=== PATIENT | male | born 1955 | race Caucasian/White ===

== ENCOUNTER 2017-07-22 09:11 | Emergency (ER) | payer OTHER ==
--- NOTE | 2017-07-22 09:33 | EDM.PDOC ---
ED HPI GENERAL MEDICAL PROBLEM - General Chief Complaint: Respiratory Problem Stated Complaint: [facility] Time Seen by Provider: 07/22/17 09:31 Source of Information: Reports: Patient History Limitations: Reports: No Limitations - History of Present Illness INITIAL COMMENTS - FREE TEXT/NARRATIVE: 62-year-old male presents to the ED per [facility]. Patient states he's felt very short of breath for a week. He has had been having to sleep sitting up in the truck. He lies flat he feels like he suffocated. He reports a productive cough with greenish sputum. He doesn't admit any fever or chills. Appetite is been poor. He reports that his blood pressure medications that he usually takes didn't arrive in the mail and was off them for about 10 days. He was restarted on these medicines 3 days ago when they arrived in the mail. Change in his medications for the last 10 years. He has no known heart disease. He reports he is a never smoker. Onset: Sudden Onset Date: 07/15/17 (Dyspnea with productive greenish sputum. No hemoptysis.) Duration: Day(s): Location: Reports: Chest (Short of breath and orthopneic and productive cough.) Quality: Reports: Other (Feels very short of breath even at rest. O2 sats are 93 % on arrival.) Severity: Moderate Improves with: Reports: None Worsens with: Reports: Other (Lying down or movement.) Context: Denies: Activity, Exercise, Lifting, Sick Contact, Trauma, Other Associated Symptoms: Reports: Cough, cough w sputum, Loss of Appetite, Malaise, Shortness of Breath, Weakness (Generally weak.). 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.) - Related Data Allergies Allergy/AdvReac Type Severity Reaction Status Date / Time No Known Allergies Allergy Verified 07/22/17 09:19 Home Meds: Home Meds Furosemide [Lasix] 40 mg PO DAILY #30 tab 07/22/17 [Rx] Metoprolol Succinate [Toprol XL 50mg] 1 tab PO DAILY 07/22/17 [History] Potassium Chloride 20 meq PO DAILY #30 tablet.er 07/22/17 [Rx] glipiZIDE [Glucotrol XL] 5 mg PO BRK 07/22/17 [History] metFORMIN [Glucophage] 850 mg PO BIDMEALS 07/22/17 [History] Past Medical History Cardiovascular History: Reports: High Cholesterol, Hypertension Respiratory History: Reports: Sleep Apnea Endocrine/Metabolic History: Reports: Diabetes, Type II (Controlled with metformin twice a day.) Social & Family History - Tobacco Use Smoking Status *Q: Never Smoker Second Hand Smoke Exposure: No - Caffeine Use Caffeine Use: Reports: Coffee - Recreational Drug Use Recreational Drug Use: No - Living Situation & Occupation Living situation: Reports: Single Occupation: Employed (Clearly up in [place] working in the [employer]. Home is in [place].) ED ROS GENERAL - Review of Systems Review Of Systems: See Below Constitutional: Reports: Malaise, Weakness, Fatigue, Weight Gain (Feels he is gaining weight is his pants are too tight.). Denies: Fever, Chills HEENT: Reports: Throat Pain Respiratory: Reports: Shortness of Breath, Wheezing (Severe wheezing and reason for coming to the ED.), Cough, Sputum (Greenish sputum.). Denies: Pleuritic Chest Pain ( Intermittently.) Cardiovascular: Reports: Blood Pressure Problem, Dyspnea on Exertion (Mild lower extremities), Edema. Denies: Chest Pain, Claudication, Lightheadedness, Orthopnea (Chronic hypertension.), Palpitations Endocrine: Reports: Fatigue GI/Abdominal: Reports: Constipation (Mild problems.). Denies: Abdominal Pain : Reports: No Symptoms Musculoskeletal: Reports: Back Pain, Joint Pain (Knees hips at times.) Skin: Reports: No Symptoms Neurological: Reports: No Symptoms Psychiatric: Reports: No Symptoms Hematologic/Lymphatic: Reports: No Symptoms Immunologic: Reports: No Symptoms ED EXAM, GENERAL - Physical Exam Exam: See Below Exam Limited By: Respiratory Distress General Appearance: Alert (Obvious respiratory distress. He is to Make with respiratory 24-26/m i.e. working hard to breathe.), WD/WN, Mild Distress ( Respiratory distress.) Eye Exam: Bilateral Eye: Normal Inspection Throat/Mouth: Normal Inspection, Normal Lips, Normal Teeth, Normal Oropharynx Head: Atraumatic, Normocephalic Neck: Normal Inspection, Supple, Non-Tender, Full Range of Motion. No: Lymphadenopathy (L), Lymphadenopathy (R) Respiratory/Chest: Respiratory Distress (Tachypnea At rest. O2 sats 92% on room air.), Decreased Breath Sounds (Sounds are severely decreased to both lower lung grace.), Wheezing (Mild expiratory wheezing bilaterally). No: Rales ( Mild expiratory wheezing bilaterally) Cardiovascular: Regular Rate, Rhythm, No Gallop, No Murmur, No Rub, Other (He has a bit of neck. Not able to visualize any elevated JVD.). No: No Edema Peripheral Pulses: 1+: Posterior Tibial (L), Posterior Tibial (R), Dorsalis Pedis (L), Dorsalis Pedis (R) GI/Abdominal: Other (Abdomen is distended and mildly tympanitic to percussion the upper abdomen. It is firm to palpation. No obvious organomegaly or masses are palpable. Abdomen girth limits ability to palpate solid organs.) Back Exam: Normal Inspection, Full Range of Motion. No: CVA Tenderness (L), CVA Tenderness (R) Extremities: Pedal Edema Neurological: Alert (Trace edema both lower extremities.), Oriented, CN II-XII Intact, Normal Cognition Psychiatric: Normal Affect, Normal Mood Skin Exam: Warm, Dry, Intact, Normal Color, No Rash EKG INTERPRETATION EKG Date: 07/22/17 Time: 09:20 Rhythm: NSR Rate (Beats/Min): 85 (Occasional unifocal PVCs appreciated) Penrose: Normal P-Wave: Present (Sleep bifid in leads V5 V6 suggesting possible right atrial hypertrophy.) QRS: Other (Mildly decreased voltage in the limb leads.) ST-T: Normal QT: Prolonged (Minimally prolonged.) EKG Interpretation Comments: Borderline ECG Course - Vital Signs Last Recorded V/S: Last Vital Signs Temp 36.4 C 07/22/17 09:14 Pulse 90 07/22/17 09:14 Resp 24 H 07/22/17 09:14 BP 140/98 H 07/22/17 09:14 Pulse Ox 94 L 07/22/17 10:33 - Orders/Labs/Meds Orders: Active Orders 24 hr Category Date Time Status EKG Documentation Completion [RC] STAT Care 07/22/17 10:02 Active Oxygen Therapy [RC] ASDIRECTED Care 07/22/17 10:02 Active Peripheral IV Care [RC] . DIRECTED Care 07/22/17 11:27 Active RT Aerosol Therapy [RC] ASDIRECTED Care 07/22/17 10:12 Active CULTURE BLOOD [BC] Stat Lab 07/22/17 10:20 Received CULTURE BLOOD [BC] Stat Lab 07/22/17 10:30 Received MAGNESIUM [CHEM] Stat Lab 07/22/17 10:20 Results MYCOPLASMA PNEUMONIAE IGM AB [CHEM] Stat Lab 07/22/17 10:20 Results Sodium Chloride 0.9% [Saline Flush] Med 07/22/17 11:27 Active 10 ml FLUSH ASDIRECTED PRN Sodium Chloride 0.9% [Saline Flush] Med 07/22/17 11:34 Active 10 ml FLUSH ONETIME PRN Blood Culture x2 Reflex Set [OM.PC] Stat Oth 07/22/17 10:03 Ordered Peripheral IV Insertion Adult [OM.PC] Stat Oth 07/22/17 11:27 Ordered Medication Orders Sodium Chloride (Saline Flush) 10 ml FLUSH ASDIRECTED PRN PRN Reason: Keep Vein Open Last Admin: 07/22/17 11:28 Dose: 10 ml Sodium Chloride (Saline Flush) 10 ml FLUSH ONETIME PRN PRN Reason: IV FLUSH Last Admin: 07/22/17 11:46 Dose: 10 ml Labs: Laboratory Tests 07/22/17 07/22/17 07/22/17 Range/Units 09:22 10:20 10:20 WBC 6.89 (4.23-9.07) K/mm3 RBC 4.99 (4.63-6.08) M/mm3 Hgb 14.4 (13.7-17.5) gm/L Hct 41.2 (40.1-51.0) % MCV 82.6 (79.0-92.2) fl MCH 28.9 (25.7-32.2) pg MCHC 35.0 (32.2-35.5) g/dl RDW Std Deviation 44.0 H (35.1-43.9) fL Plt Count 237 (163-337) K/mm3 MPV 9.9 (9.4-12.3) fl Neutrophils % (Manual) 54 (40-60) % Band Neutrophils % 1 (0-10) % Lymphocytes % (Manual) 40 (20-40) % Atypical Lymphs % 0 % Monocytes % (Manual) 4 (2-10) % Eosinophils % (Manual) 1 (0.8-7.0) % Basophils % (Manual) 0 L (0.2-1.2) Platelet Estimate Adequate RBC Morph Comment Normal ESR (0-15) mm/hr PT 10.4 (8.0-13.0) SECONDS INR 0.96 D-Dimer, Quantitative (0.19-0.59) mg/L Sodium (136-145) mEq/L Potassium (3.5-5.1) mEq/L Chloride (98-107) mEq/L Carbon Dioxide (21-32) mEq/L Anion Gap (5-15) BUN (7-18) mg/dL Creatinine (0.7-1.3) mg/dL Est Cr Clr Drug Dosing mL/min Estimated GFR (MDRD) (>60) mL/min BUN/Creatinine Ratio (14-18) Glucose (74-106) mg/dL POC Glucose 323 H (70-105) mg/dL Calcium (8.5-10.1) mg/dL Magnesium (1.8-2.4) mg/dl Total Bilirubin (0.2-1.0) mg/dL AST (15-37) U/L ALT (16-63) U/L Alkaline Phosphatase (46-116) U/L CK-MB (CK-2) (0-3.6) ng/ml Troponin I (0.00-0.056) ng/mL C-Reactive Protein (<1.0) mg/dL NT-Pro-B Natriuret Pep (0-125) pg/mL Total Protein (6.4-8.2) g/dl Albumin (3.4-5.0) g/dl Globulin gm/dL Albumin/Globulin Ratio (1-2) 07/22/17 07/22/17 07/22/17 Range/Units 10:20 10:20 10:20 WBC (4.23-9.07) K/mm3 RBC (4.63-6.08) M/mm3 Hgb (13.7-17.5) gm/L Hct (40.1-51.0) % MCV (79.0-92.2) fl MCH (25.7-32.2) pg MCHC (32.2-35.5) g/dl RDW Std Deviation (35.1-43.9) fL Plt Count (163-337) K/mm3 MPV (9.4-12.3) fl Neutrophils % (Manual) (40-60) % Band Neutrophils % (0-10) % Lymphocytes % (Manual) (20-40) % Atypical Lymphs % % Monocytes % (Manual) (2-10) % Eosinophils % (Manual) (0.8-7.0) % Basophils % (Manual) (0.2-1.2) Platelet Estimate RBC Morph Comment ESR 8 (0-15) mm/hr PT (8.0-13.0) SECONDS INR D-Dimer, Quantitative (0.19-0.59) mg/L Sodium 137 (136-145) mEq/L Potassium 3.6 (3.5-5.1) mEq/L Chloride 102 (98-107) mEq/L Carbon Dioxide 24 (21-32) mEq/L Anion Gap 14.6 (5-15) BUN 11 (7-18) mg/dL Creatinine 0.9 (0.7-1.3) mg/dL Est Cr Clr Drug Dosing 87.28 mL/min Estimated GFR (MDRD) > 60 (>60) mL/min BUN/Creatinine Ratio 12.2 L (14-18) Glucose 353 H (74-106) mg/dL POC Glucose (70-105) mg/dL Calcium 8.3 L (8.5-10.1) mg/dL Magnesium 1.8 (1.8-2.4) mg/dl Total Bilirubin 0.8 (0.2-1.0) mg/dL AST 26 (15-37) U/L ALT 41 (16-63) U/L Alkaline Phosphatase 111 (46-116) U/L CK-MB (CK-2) 2.6 (0-3.6) ng/ml Troponin I < 0.017 (0.00-0.056) ng/mL C-Reactive Protein 1.0 (<1.0) mg/dL NT-Pro-B Natriuret Pep 752 H (0-125) pg/mL Total Protein 6.2 L (6.4-8.2) g/dl Albumin 3.2 L (3.4-5.0) g/dl Globulin 3.0 gm/dL Albumin/Globulin Ratio 1.1 (1-2) /26/18 Range/Units 10:20 WBC (4.23-9.07) K/mm3 RBC (4.63-6.08) M/mm3 Hgb (13.7-17.5) gm/L Hct (40.1-51.0) % MCV (79.0-92.2) fl MCH (25.7-32.2) pg MCHC (32.2-35.5) g/dl RDW Std Deviation (35.1-43.9) fL Plt Count (163-337) K/mm3 MPV (9.4-12.3) fl Neutrophils % (Manual) (40-60) % Band Neutrophils % (0-10) % Lymphocytes % (Manual) (20-40) % Atypical Lymphs % % Monocytes % (Manual) (2-10) % Eosinophils % (Manual) (0.8-7.0) % Basophils % (Manual) (0.2-1.2) Platelet Estimate RBC Morph Comment ESR (0-15) mm/hr PT (8.0-13.0) SECONDS INR D-Dimer, Quantitative 0.40 (0.19-0.59) mg/L Sodium (136-145) mEq/L Potassium (3.5-5.1) mEq/L Chloride (98-107) mEq/L Carbon Dioxide (21-32) mEq/L Anion Gap (5-15) BUN (7-18) mg/dL Creatinine (0.7-1.3) mg/dL Est Cr Clr Drug Dosing mL/min Estimated GFR (MDRD) (>60) mL/min BUN/Creatinine Ratio (14-18) Glucose (74-106) mg/dL POC Glucose (70-105) mg/dL Calcium (8.5-10.1) mg/dL Magnesium (1.8-2.4) mg/dl Total Bilirubin (0.2-1.0) mg/dL AST (15-37) U/L ALT (16-63) U/L Alkaline Phosphatase (46-116) U/L CK-MB (CK-2) (0-3.6) ng/ml Troponin I (0.00-0.056) ng/mL C-Reactive Protein (<1.0) mg/dL NT-Pro-B Natriuret Pep (0-125) pg/mL Total Protein (6.4-8.2) g/dl Albumin (3.4-5.0) g/dl Globulin gm/dL Albumin/Globulin Ratio (1-2) Meds: Medications Generic Name Dose Route Start Last Admin Trade Name Maury PRN Reason Stop Dose Admin Sodium Chloride 10 ml 07/22/17 11:27 07/22/17 11:28 Saline Flush FLUSH 10 ml ASDIRECTED PRN Administration Keep Vein Open Sodium Chloride 10 ml 07/22/17 11:34 07/22/17 11:46 Saline Flush FLUSH 10 ml ONETIME PRN Administration IV FLUSH Discontinued Medications Generic Name Dose Route Start Last Admin Trade Name Freq PRN Reason Stop Dose Admin Albuterol/Ipratropium 3 ml 07/22/17 10:12 07/22/17 10:19 Duoneb 3.0-0.5 Mg/3 Ml NEB 07/22/17 10:13 3 ml ONETIME ONE Administration Furosemide 40 mg 07/22/17 11:27 07/22/17 11:52 Lasix IVPUSH 07/22/17 11:28 40 mg NOW ONE Administration Iopamidol 80 ml 07/22/17 11:34 07/22/17 11:46 Isovue-300 (61%) IVPUSH 07/22/17 11:35 80 ml ONETIME ONE Administration - Radiology Interpretation Free Text/Narrative:: CT of the chest is been completed. It releases reveals bilateral moderate sized pleural effusions with compressive atelectasis of both lower lung grace. No evidence of pneumonia within the pleural effusion or compressed lungs is evident. - Re-Assessments/Exams Free Text/Narrative Re-Assessment/Exam: 07/22/17 11:26 2 view chest x-ray reveals bilateral pleural effusions more on the right as compared to the left. There is evidence of diffuse pulmonary vascular congestion. Mild degenerative changes appreciated in the thoracic spine. Because he has a fever I'm going to CT his chest to make sure it does not show any obvious pneumonia or complicated empyema in the right lower lobe. Will have the nurses give him Lasix 40 mg IV. He did not get much relief of his dyspnea from the DuoNeb. However his O2 sats are 96% at rest. 07/22/17 11:29 White count is 6.89 with a normal differential 54% neutrophils 1 % bands reported and 40% lymphocytes. Hemoglobin is 14.4 with hematocrit of 41.2. Sedimentation rate is 8. PT is 10.4 with an INR of 0.96. Sodium is 137 with potassium of 3.6. Chloride is 102 with a bicarbonate 24. Anion gap is 14.6. BUN is 11. Creatinine is 0.9. Glucose is elevated at 353 suggesting occult type 2 diabetes. Calcium was 8.3 bilirubin 0.8 liver function normal. CK- MB fraction is normal at 2.6 troponin I is less than 0.017. C-reactive protein is 1.0 BNP is 752. Normal BNP in his age group is 125 or less. Total protein is 6.2 with an albumin fraction 3.2. Therefore we have a gentleman with new onset of significant congestive heart failure. No evidence of recent myocardial infarction that would account for this. 07/22/17 12:04 CT scan of the chest reveals bilateral moderate the large pleural effusions with compressive type atelectasis within both lung bases. No pneumonia is evident in either lung. 07/22/17 12:56 patient is eaten dinner. He will be discharged from the hospital as he has plans to get airplane tomorrow at 6 AM to travel back to [place], his home. He therefore did not wish to stay in the hospital and was not felt prudent to proceed with echocardiogram as the send echo to [facility] to get read by cardiology which would not give us a result until Tuesday or Tuesday of next week. Clinically the patient has developed a cardiomyopathy. Etiology unclear whether this may be ischemic or viral. It has produced bilateral pleural effusions that are causing his significant dyspnea. His O2 sats are 96% on room air but of course go down into the upper 80s on minimal exertion. 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 In the meantime I placed him on Lasix 40 mg once daily every morning he will take a first tablet this afternoon about 4 PM. Also Slow-K 20 mg once daily to be taken with his Lasix tablet to prevent hypokalemia. Potassium today was 3.6. We'll function is normal. Patient will be given copies of CT scan chest x-ray on CD-ROM. Copies of his x-ray reports his ECG and history and physical will be provided to him to take to his doctor in [place]. Departure - Departure Time of Disposition: 12:42 Disposition: Home, Self-Care 01 Condition: Fair Clinical Impression: Bilateral pleural effusion Congestive heart failure (CHF) Qualifiers: Congestive heart failure type: unspecified Congestive heart failure chronicity : acute Qualified Code(s): I50.9 - Heart failure, unspecified Dyspnea Qualifiers: Dyspnea type: shortness of breath Qualified Code(s): R06.02 - Shortness of breath - Discharge Information Prescriptions: Furosemide [Lasix] 40 mg PO DAILY #30 tab Potassium Chloride 20 meq PO DAILY #30 tablet.er Referrals: PCP,Not In Area [Primary Care Provider] - Forms: ED Department Discharge Additional Instructions: Evaluation in the emergency him today in regards to gradually worsening shortness of breath for the last week. Unable to lie down flat due to shortness of breath. Examination suggested decreased air entry to both lower lung grace with dullness to percussion suggesting fluid within your lungs. This is been confirmed on chest x-ray and subsequently CT of the chest as well as you have moderate bilateral pleural effusions which means fluid accumulating in the lower lobes of each lung. It's about equal on each side. This is almost certainly due to weakness of heart muscle that is come on over the last week or 2. This may have been viral induced or sometimes it can mean that the heart muscle itself is not getting adequate blood supply which we call ischemia. The lab tests done here did not show any signs of recent heart attack. Nor does the ECG suggest any recent heart attack. Therefore current symptoms are concerning for possible viral infection of the heart muscle making it weaker than normal causing the fluid to accumulate in your lungs. You need to follow-up with your doctor when you get back home as you need further investigations as to why your heart muscle has weakened suddenly. One test required is an echocardiogram which is an ultrasound of the heart. If this is essentially negative then wound/ostomy clinical nurse specialist would be need to become involved to sort out reason for heart failure. Of note heart failure recurrences is much more common in diabetic patients and therefore important that your blood sugars stay well controlled. Today the blood sugar was elevated at 350. You're treated in the emergency room with intravenous Lasix 40 mg which will start to take some of the fluid off of your lungs. You need to take this in Betsey form starting this afternoon about 4: 00 therefore Stalevo. I would suggest taking it tomorrow after you arrived in [place] from airplane ride so that you do not have to void frequently while on the airplane. Need to take water pill and a potassium supplement daily until follow-up with your doctor or wound/ostomy clinical nurse specialist. Copies of all your labs and your chest x-ray and ECG and CT of the chest were provided to you to take to your doctor when you get home. - My Orders Last 24 Hours: My Active Orders 07/22/17 10:02 EKG Documentation Completion [RC] STAT Oxygen Therapy [RC] ASDIRECTED 07/22/17 10:03 Blood Culture x2 Reflex Set [OM.PC] Stat 07/22/17 10:12 RT Aerosol Therapy [RC] ASDIRECTED 07/22/17 10:20 CULTURE BLOOD [BC] Stat MAGNESIUM [CHEM] Stat MYCOPLASMA PNEUMONIAE IGM AB [CHEM] Stat 07/22/17 10:30 CULTURE BLOOD [BC] Stat 07/22/17 11:27 Peripheral IV Care [RC] . DIRECTED Sodium Chloride 0.9% [Saline Flush] 10 ml FLUSH ASDIRECTED PRN Peripheral IV Insertion Adult [OM.PC] Stat 07/22/17 11:34 Sodium Chloride 0.9% [Saline Flush] 10 ml FLUSH ONETIME PRN - Assessment/Plan Last 24 Hours: My Active Orders 07/22/17 10:02 EKG Documentation Completion [RC] STAT Oxygen Therapy [RC] ASDIRECTED 07/22/17 10:03 Blood Culture x2 Reflex Set [OM.PC] Stat 07/22/17 10:12 RT Aerosol Therapy [RC] ASDIRECTED 07/22/17 10:20 CULTURE BLOOD [BC] Stat MAGNESIUM [CHEM] Stat MYCOPLASMA PNEUMONIAE IGM AB [CHEM] Stat 07/22/17 10:30 CULTURE BLOOD [BC] Stat 07/22/17 11:27 Peripheral IV Care [RC] . DIRECTED Sodium Chloride 0.9% [Saline Flush] 10 ml FLUSH ASDIRECTED PRN Peripheral IV Insertion Adult [OM.PC] Stat 07/22/17 11:34 Sodium Chloride 0.9% [Saline Flush] 10 ml FLUSH ONETIME PRN
[2017-07-22] MEDS ORDERED: Albuterol/Ipratropium 3.0-0.5 MG/3 ML Neb Soln NEB ONE (10:12)
--- NOTE | 2017-07-22 11:16 | CR ---
Chest: Two views of the chest were obtained. Comparison: No prior study. Heart size at the upper limits of normal. Pulmonary vessels are congested. Small bilateral pleural effusions are seen. Slight degenerative change is noted within the spine. Impression: 1. Findings suspicious for CHF. Diagnostic code #3
[2017-07-22] MEDS ORDERED: Sodium Chloride 0.9% 10 ML Syringe FLUSH PRN ×2 (11:27→11:34)
[2017-07-22] MEDS ORDERED: Furosemide 40 MG/4 ML VIAL IVPUSH ONE (11:27)
[2017-07-22] MEDS ORDERED: Iopamidol 612 MG/ML 100 ML Bottle IVPUSH ONE (11:34)
--- NOTE | 2017-07-22 12:04 | CT ---
CT chest Technique: Multiple axial sections through the chest were obtained. Intravenous contrast was utilized. Findings: Moderately large bilateral pleural effusions are seen. Compressive type atelectasis is noted within both lung bases. Lungs otherwise are clear. Heart size at the upper limits of normal. Mild coronary artery calcification is seen. Very minimal pericardial effusion is seen which is felt to be incidental. Small portion of the visualized upper abdominal structures are within normal limits. Impression: 1. Moderately large bilateral pleural effusions with compressive type atelectasis within both lung bases. Diagnostic code #3
== END 2017-07-22 14:15 | disposition home or self-care (01) ==
LOC: JD.ED 09:11
DX: I11.0 Hypertensive heart disease with heart failure (principal); I50.9 Heart failure, unspecified; J90 Pleural effusion, not elsewhere classified; E11.9 Type 2 diabetes mellitus without complications; Z79.84 Long term (current) use of oral hypoglycemic drugs
CPT/HCPCS: 36415; 71046; 71260; 80053; 82553; 82962; 83735; 83880; 84484; 85025; 85379; 85610; 85652; 86140; 86738; 87040; 87804; 93005; 94640; 96374; 99285; J1940; J7050; Q9967; 93010

== ENCOUNTER 2017-10-21 15:26 | Emergency (ER) | payer OTHER ==
[2017-10-21] MEDS ORDERED: Furosemide 40 MG Tab PO ONE (16:21)
--- NOTE | 2017-10-21 16:26 | EDM.PDOC ---
ED HPI GENERAL MEDICAL PROBLEM - General Chief Complaint: Cardiovascular Problem Stated Complaint: SWELLING Time Seen by Provider: 10/21/17 16:21 Source of Information: Reports: Patient - History of Present Illness INITIAL COMMENTS - FREE TEXT/NARRATIVE: Patient arrives here in the emergency room, sent from the clinic, very angry and agitated. Patient reportedly presented to the clinic for a refill of his Lasix today and was told he needed to be evaluated in the emergency room. Patient was previously evaluated in the emergency room in June 2017 and started on Lasix at that time. He has suspected cardiomyopathy, but he has not had an echocardiogram or any cardiac work-up performed. Known hypertension and type 2 diabetes. He does have sleep apnea as well, states that he is not used CPAP since he "doesn't need it anymore". Patient did have a full physical with lab work per his report with his PCP back home in [place] in July and reports everything was normal at that time. Patient is on metoprolol daily for his blood pressure but he has chose to cut this back to one half tablet daily, he decided this on his own. Patient is having some mild dyspnea. He denies any headache or dizziness. He denies any chest pain. Denies any GI symptoms. He is having lower extremity edema. - Related Data Allergies Allergy/AdvReac Type Severity Reaction Status Date / Time Penicillins Allergy Cannot Verified 10/21/17 15:42 Remember Home Meds: Home Meds Furosemide [Lasix] 40 mg PO DAILY #30 tab 07/22/17 [Rx] Metoprolol Succinate [Toprol XL 50mg] 1 tab PO DAILY 07/22/17 [History] Potassium Chloride 20 meq PO DAILY #30 tablet.er 07/22/17 [Rx] glipiZIDE [Glucotrol XL] 5 mg PO BRK 07/22/17 [History] metFORMIN [Glucophage] 850 mg PO BIDMEALS 07/22/17 [History] Furosemide [Lasix] 40 mg PO DAILY #30 tablet 10/21/17 [Rx] Potassium Chloride [K-Tab ER] 20 meq PO DAILY 1 Days #30 tablet.er 10/21/17 [Rx] Past Medical History Cardiovascular History: Reports: High Cholesterol, Hypertension Respiratory History: Reports: Sleep Apnea Endocrine/Metabolic History: Reports: Diabetes, Type II Social & Family History - Tobacco Use Smoking Status *Q: Current Every Day Smoker Years of Tobacco use: 45 Packs/Tins Daily: 0.7 Second Hand Smoke Exposure: No - Caffeine Use Caffeine Use: Reports: Soda - Recreational Drug Use Recreational Drug Use: No - Living Situation & Occupation Living situation: Reports: Single Occupation: Employed (Clearly up in [place] working in the [employer]. Home is in [place].) ED ROS GENERAL - Review of Systems Review Of Systems: See Below Constitutional: Denies: Fever, Chills, Malaise, Weakness, Fatigue, Decreased Appetite HEENT: Reports: No Symptoms Respiratory: Reports: Shortness of Breath. Denies: Wheezing, Pleuritic Chest Pain, Cough, Sputum, Hemoptysis Cardiovascular: Reports: Blood Pressure Problem, Dyspnea on Exertion, Edema. Denies: Chest Pain, Claudication, Lightheadedness, Orthopnea, Palpitations GI/Abdominal: Reports: No Symptoms Musculoskeletal: Reports: No Symptoms Skin: Reports: No Symptoms Neurological: Reports: No Symptoms Psychiatric: Reports: No Symptoms ED EXAM, GENERAL - Physical Exam Exam: See Below Exam Limited By: No Limitations General Appearance: Alert, WD/WN, Other (Angry & Agitated) Ears: Normal External Exam, Hearing Grossly Normal, Normal TMs Throat/Mouth: Normal Inspection, Normal Oropharynx Head: Atraumatic, Normocephalic Neck: Normal Inspection, Supple, Non-Tender Respiratory/Chest: No Respiratory Distress, Crackles (Bibasalar) Cardiovascular: Normal Peripheral Pulses, No Murmur, Tachycardia (Regular rhythm ) GI/Abdominal: Normal Bowel Sounds, Soft, Non-Tender Extremities: Pedal Edema (2+ pitting) Neurological: Alert, Oriented Psychiatric: Anxious, Other (Angry) Skin Exam: Warm, Dry, Intact, No Rash Course - Vital Signs Last Recorded V/S: Last Vital Signs Temp 98.4 F 10/21/17 15:35 Pulse 134 H 10/21/17 16:15 Resp 20 10/21/17 16:15 BP 169/113 H 10/21/17 16:15 Pulse Ox 95 10/21/17 16:15 - Orders/Labs/Meds Meds: Medications Discontinued Medications Generic Name Dose Route Start Last Admin Trade Name Freq PRN Reason Stop Dose Admin Furosemide 40 mg 10/21/17 16:21 10/21/17 16:27 Lasix PO 10/21/17 16:22 40 mg ONETIME ONE Administration - Re-Assessments/Exams Free Text/Narrative Re-Assessment/Exam: Patient denies any chest pain at present. His blood pressure is elevated initially 172/116, this did come down after a while to 150/98. Patient states that he has been cutting his metoprolol in half recently. I advised patient to resume whole tab daily. Patient is requesting refill of his Lasix, he does have bibasilar crackles and pedal edema since stopping this. I strongly advised patient that I recommend he have some lab work and a chest x- ray. Patient declines this today. I did discuss at length with the patient the side effect that the Lasix can have on both kidney function and the electrolytes in his blood and what the electrolytes do and patient verbalizes understanding of this but still declines further workup. Patient's Lasix & potassium will be refilled. Initial dose of 40 mg was given by mouth here in the emergency room. He is agreeable to follow-up in the clinic in 2-3 weeks for follow-up with lab work prior. He will need an echocardiogram as well and he is in agreement with this. He will call to schedule the appointment when he knows he'll have a day off, he will call myself or my nurse that we can order the echocardiogram for the same day if possible. I advised patient if he has any worsening symptoms or any chest pain that he is to return to the emergency room for further evaluation and patient is in agreement with this. 10/21/17 17:09 Departure - Departure Time of Disposition: 16:22 Disposition: Home, Self-Care 01 Condition: Fair Clinical Impression: Hypertensive heart disease Qualifiers: Heart failure presence: unspecified whether heart failure present Qualified Code(s): I11.9 - Hypertensive heart disease without heart failure Edema Qualifiers: Edema type: unspecified Qualified Code(s): R60.9 - Edema, unspecified Prescriptions: Furosemide [Lasix] 40 mg PO DAILY #30 tablet Potassium Chloride [K-Tab ER] 20 meq PO DAILY 1 Days #30 tablet.er Instructions: Hypertension, [id number], Edema, [id number] Referrals: Carla Martins PA [Emergency Provider] - Forms: ED Department Discharge Additional Instructions: You were given your first dose of Lasix here in the emergency room. You can grain picker a prescription at pharmacy. You need to follow-up with Carla Martins PA-C ([phone]) in the clinic in 2-3 weeks to have lab work rechecked and schedule an ultrasound of your heart. Certainly if you feel worse or have chest pain or worsening shortness of breath returned to the emergency room.
== END 2017-10-21 16:35 | disposition home or self-care (01) ==
LOC: JD.ED 15:26
DX: I11.9 Hypertensive heart disease without heart failure (principal); E78.00 Pure hypercholesterolemia, unspecified; E11.9 Type 2 diabetes mellitus without complications; F17.210 Nicotine dependence, cigarettes, uncomplicated; Z88.0 Allergy status to penicillin; Z79.899 Other long term (current) drug therapy; Z79.84 Long term (current) use of oral hypoglycemic drugs
CPT/HCPCS: 99284; A9270; 99283